=== PATIENT | female | born 1995 | race Two or more races ===

== ENCOUNTER 2024-08-16 20:07 | Emergency (ER) | payer MEDICAID, SELFPAY ==
[2024-08-16 20:26] VITALS: BP 140/93; PULSE 126; RESP 19; TEMP 39.3; O2SAT 99
--- NOTE | 2024-08-16 20:33 | XR_ITS ---
Examination: PA and lateral chest 2 views TECHNIQUE: Upright PA lateral chest 2 views Examination type: August 16, 2024 at 2043 hours INDICATIONS: Fever beginning 4 days ago FINDINGS: Normal heart size The lungs are clear The osseous structures are intact IMPRESSION: No active disease
--- NOTE | 2024-08-16 20:33 | EKG_ITS ---
[facility] Test Date: 2024-08-16 Pat Name: JORGE HEDRICK Department: Room: - Gender: Female Web Project Manager: : 1995 Requested By: Mark Anthony Ambrosio ([facility]) Order Number: [id number] Reading MD: Mark Anthony Ambrosio ([facility]) Measurements Intervals Notus Rate: 112 P: 71 PA: 131 QRS: 56 QRSD: 87 T: 39 QT: 309 QTc: 424 Interpretive Statements SINUS TACHYCARDIA NONSPECIFIC T-WAVE ABNORMALITY ABNORMAL RHYTHM ECG No previous ECG available for comparison /[id number]/[email or web address]/[id number].pdf
--- NOTE | 2024-08-16 20:34 | PD.EDRME ---
Rapid Medical Screening Exam RME Arrival date/time: 08/16/24 20:07 29-year-old female presents emergency department complaining of sore throat, body aches, fever, and cough for several days. Chief Complaint: Fever Time Seen by Provider: 08/16/24 20:16 Vital signs: Vital Signs Temperature 102.7 F H 08/16/24 20:26 Pulse Rate 126 H 08/16/24 20:26 Respiratory Rate 19 08/16/24 20:26 Blood Pressure 140/93 H 08/16/24 20:26 Pulse Oximetry (%) 99 08/16/24 20:26 Oxygen Delivery Method Room Air 08/16/24 20:26 Vital signs reviewed by provider: Yes
[2024-08-16 20:36] VITALS: BMI 24.7
[2024-08-16 20:39] VITALS: TEMP 39.3
[2024-08-16] MEDS: ACETAMINOPHEN 500 MG TABLET 1000 MG PO (20:39)
[2024-08-16 21:20] LABS: Lactate (Lactic Acid) 1.3 mMol/L (0.4-2.0)
[2024-08-16 21:26] LABS: Basophils % (Auto) 0 % (0-2.5); Eosinophils % (Auto) 0 % (0-10); Hematocrit 32.6 % (36.0-46.0); Hemoglobin 10.5 g/dL (12.0-16.0); Immature Granulocytes % (Auto) 1 % (0-0); Immature Granulocytes Auto 0.17 Thou/mm3 (0.00-0.00); Lymphocytes # (Auto) 2.3 Thou/mm3 (1.0-4.8); Lymphocytes % (Auto) 11 % (10-50); Mean Corpuscular HGB Conc 32.2 g/dl (31.0-37.0); Mean Corpuscular Hemoglobin 25.1 pg (25.0-35.0); Mean Corpuscular Volume 78 fL (80-100); Monocytes # (Auto) 1.7 Thou/mm3 (0.0-0.8); Monocytes % (Auto) 8 % (0-12); Neutrophils # (Auto) 16.5 Thou/mm3 (1.8-7.7); Neutrophils % (Auto) 80 % (37-80); Nucleated Red Blood Cell % 0 /100 WBC (0); Platelet Count 245 Thou/mm3 (140-440); RDW Standard Deviation 56.3 fL (36.4-46.3); Red Blood Count 4.18 Miln/mm3 (4.00-5.20)
[2024-08-16 21:32] LABS: White Blood Count 20.7 Thou/mm3 (3.6-11.0)
[2024-08-16 21:33] LABS: Strep A Rapid Positive (Negative)
--- NOTE | 2024-08-16 21:41 | PD.EDFEVER ---
ED Fever RME/HPI General Chief Complaint: Fever Stated Complaint: Fever and sore throat X 4 days Time Seen by Provider: 08/16/24 20:16 Source: patient Arrival date/time: 08/16/24 20:07 29-year-old female with no known medical history presents to the emergency room with a chief complaint of a sore throat, body aches, fever x 4 days Mode of arrival: ambulatory Limitations: no limitations RME / HPI RME / HPI Narrative: 08/16/24 20:07 29-year-old female presents emergency department complaining of sore throat, body aches, fever, and cough for several days. Related Data Previous Rx's ?Medication ?Instructions ?Recorded penicillin V potassium 500 mg 500 mg PO BID 10 days #20 tabs 08/16/24 tablet Allergies Allergy/AdvReac Type Severity Reaction Status Date / Time No Known Allergies Allergy Unverified 11/04/21 16:25 Review of Systems Review of Systems Systems Reviewed: All systems reviewed, normal except as documented Constitutional Constitutional: Reports system reviewed and no additional complaints, except as documented, Denies fatigue, Reports fever(s), Denies headache(s) and Reports weakness Eyes Eyes: Reports system reviewed and no additional complaints, except as documented, Denies blurry vision and Denies change in vision ENT Ears, Nose, Mouth, and Throat: Reports system reviewed and no additional complaints, except as documented, Denies otalgia, Denies headache(s), Denies nasal congestion, Reports sore throat, Denies throat swelling and Denies vertigo Cardiovascular Cardiovascular: Reports system reviewed and no additional complaints, except as documented, Denies chest pain, Denies dyspnea and Denies dyspnea on exertion Respiratory Respiratory: Reports system reviewed and no additional complaints, except as documented, Denies chest congestion, Denies cough, Denies dyspnea, Denies dyspnea on exertion and Denies wheezing Gastrointestinal Gastrointestinal: Reports system reviewed and no additional complaints, except as documented, Denies abdominal pain, Denies cramping, Denies nausea and Denies vomiting Genitourinary Genitourinary: Reports system reviewed and no additional complaints, except as documented Musculoskeletal Musculoskeletal: Reports system reviewed and no additional complaints, except as documented and Denies back pain Integumentary/Breasts Skin/Breast: Reports system reviewed and no additional complaints, except as documented and Denies wounds Neurologic Neurologic: Reports system reviewed and no additional complaints, except as documented, Denies confusion, Denies headache(s), Denies lack of coordination, Denies vertigo and Reports weakness Psychiatric Psychiatric: Reports system reviewed and no additional complaints, except as documented, Denies anxiety, Denies confusion, Denies depression, Denies paranoia, Denies suicidal ideation and Denies tactile hallucinations Endocrine Endocrine: Reports system reviewed and no additional complaints, except as documented and Denies fatigue Hematologic/Lymphatic Hematologic/Lymphatic: Reports system reviewed and no additional complaints, except as documented and Denies lymphadenopathy Allergic/Immunologic Allergic/Immunologic: Reports system reviewed and no additional complaints, except as documented, Denies throat swelling, Denies urticaria and Denies wheezing Physical Exam General Limitations: no limitations General appearance: alert and in no apparent distress Head Head exam: atraumatic Eye Eye exam: Present normal appearance, PERRL and EOMI ENT ENT exam: Present normal exam, normal oropharynx and mucous membranes moist Expanded ENT Exam Throat exam: Present tonsillar erythema and tonsillar exudate Neck Neck exam: Present normal inspection, full ROM and trachea midline Chest Chest inspection: Present normal inspection and symmetric chest wall rise Respiratory Respiratory exam: Present normal lung sounds bilaterally Cardiovascular Cardiovascular exam: Present regular rate, normal rhythm and normal heart sounds Abdominal Exam Abdominal exam: Present soft and normal bowel sounds Extremities Exam Extremities exam: Present normal inspection and full ROM Back Exam Back exam: Present normal inspection and full ROM Neurological Exam Neurological exam: Present alert, oriented X3 and CN II-XII intact Psychiatric Psychiatric exam: Present normal affect and normal mood Skin Skin exam: Present warm, dry, intact and normal color ED Exam General Limitations: Present no limitations General appearance: Present alert and in no apparent distress Head Head exam: Present atraumatic Eye Eye exam: Present normal appearance, PERRL and EOMI ENT ENT exam: Present normal exam, normal oropharynx and mucous membranes moist Expanded ENT Exam Throat exam: Present tonsillar erythema and tonsillar exudate Neck Neck exam: Present normal inspection, full ROM and trachea midline Chest Chest inspection: Present normal inspection and symmetric chest wall rise Respiratory Respiratory exam: Present normal lung sounds bilaterally Cardiovascular Cardiovascular exam: Present regular rate, normal rhythm and normal heart sounds Abdominal Exam Abdominal exam: Present soft and normal bowel sounds Extremities Exam Extremities exam: Present normal inspection and full ROM Back Exam Back exam: Present normal inspection and full ROM Neurological Exam Neurological exam: Present alert, oriented X3 and CN II-XII intact Psychiatric Psychiatric exam: Present normal affect and normal mood Skin Skin exam: Present warm, dry, intact and normal color Course Quality Measures none Orders Category Date Time Status Bedside Influenza A&B Antigen Test NOW Care 08/16/24 20:34 Completed EKG (ED ONLY) *Do not use* NOW Care 08/16/24 20:33 Completed EKG (ED Only) Stat Exams 08/16/24 20:33 Draft XR chest 2V Stat Exams 08/16/24 20:33 Completed B-Type Natriuretic Peptide Stat Lab 08/16/24 20:50 Completed Blood Culture (Lab) Stat Lab 08/16/24 20:55 Received CBC Stat Lab 08/16/24 20:50 Completed Comprehensive Metabolic Panel Stat Lab 08/16/24 20:50 Completed HCG,Qualitative Serum Stat Lab 08/16/24 20:50 Completed Lactate (Lactic Acid) Stat Lab 08/16/24 20:50 Completed Lipase Stat Lab 08/16/24 20:50 Completed Magnesium Stat Lab 08/16/24 20:50 Completed Partial Thromboplastin Time Stat Lab 08/16/24 20:50 Completed Procalcitonin Stat Lab 08/16/24 20:50 Completed Prothrombin Time with INR Stat Lab 08/16/24 20:50 Completed Strep A Rapid Stat Lab 08/16/24 20:58 Completed Troponin I Stat Lab 08/16/24 20:50 Completed Urinalysis Stat Lab 08/16/24 20:33 Ordered Urine Culture Stat Lab 08/16/24 20:33 Ordered Acetaminophen Tab [Tylenol ES Tab] Med 08/16/24 20:35 Discontinued 1,000 mg PO X1 ONE PEN G MICHAEL (Bicillin LA) [Bicillin La Inj] Med 08/16/24 21:40 Discontinued 1.2 mmu IM X1 ONE Vital Signs Vital signs: Vital Signs Temperature 102.7 F H 08/16/24 20:26 Pulse Rate 126 H 08/16/24 20:26 Respiratory Rate 19 08/16/24 20:26 Blood Pressure 140/93 H 08/16/24 20:26 Pulse Oximetry (%) 99 08/16/24 20:26 Oxygen Delivery Method Room Air 08/16/24 20:26 O2 saturation 99% within normal limits Fever MDM Narrative MDM Narrative:: 29-year-old female with no known medical history presents to the emergency room with a chief complaint of a sore throat, body aches, fever x 4 days Patient is hemodynamically stable and in no apparent distress. Patient is febrile but was given antipyretics Physical examination shows an erythemic posterior pharynx with exudates to the right tonsillar pillar and a cobblestone appearance Strep test was positive for Streptococcus pharyngitis Patient discharged and educated to follow-up with primary care provider and return to the emergency room for any evidence of worsening signs or send Patient data External records reviewed:: [facility] previous records Clinical information provided by:: patient Social determinants that could affect healthcare access:: none Patient has the following chronic illnesses:: No chronic illness How is presenting disease/condition affected by chronic disease/condition?: no chronic disease Evaluation data The following diagnostics were reviewed and interpreted by me:: lab results and radiology exam(s) Lab and/or radiology exams considered but not ordered:: Labs and radiology exams considered and ordered Interpretation Summary: N/A Medications / Prescriptions Medications or Prescriptions considered but not ordered:: Medication given Medication administrations:: Medication Administration History Discontinued Medications Acetaminophen (Acetaminophen 500 Mg Tablet) 1,000 mg PO X1 ONE Stop: 08/16/24 20:36 Last Admin: 08/16/24 20:39 Dose: 1,000 mg Documented By: OA Penicillin G Benzathine (Pen G Michael (Bicillin La) 1.2 Mmu/2 Ml Syrg) 1.2 mmu IM X1 ONE Stop: 08/16/24 21:41 Rx given Consultations Consultation(s) initiated? (list below): No Diagnosis Fever Differential Diagnosis: community acquired pneumonia, viral infection, influenza and other (Pharyngitis) Most likely diagnosis given after review of the tests above:: Acute pharyngitis Admission Indicated Admission indicated?: not indicated Admission Request Was there a request for admission?: No Disposition Plan Disposition Plan: Discharge Discharge Attestation Discharge Attestation: The patient and all family members were given an opportunity to ask questions and understood the discharge instructions. Discharge instructions specifically effects, indications for sooner follow up or return to the emergency department, and the expected course of current diagnosis. Patient condition: Stable Discharge Plan Plan Patient Disposition: HOME (Self Care) Disposition Comment: Stable Prescriptions/Referrals Prescriptions/Med Rec: New penicillin V potassium 500 mg tablet 500 mg PO BID 10 Days Qty: 20 0RF Referrals: Magen Squires MD [Primary Care Provider] - In 1 week Problem List Clinical Impression: Acute streptococcal pharyngitis Patient/Caregiver Discharge Instructions Education Materials: ED Pharyngitis, Strep (Confirmed) Additional Instructions: Please follow-up with your primary care provider in the next 24 to 48 hours. Antibiotics are sent to your pharmacy please pick it up and take them as indicated. You tested positive for strep throat. Please continue to take Tylenol and ibuprofen for fever management Please increase your oral and fluid intake For any evidence of worsening signs or symptoms please return to the emergency room immediately Print Language: Malawian Stand Alone Forms: Renay Award Info., Patient Portal Info Letter PA/DUB ROOM ENGINEER Supervising Physician PA/ANDREINA Supervising Physician: Dr. Galicia
[2024-08-16 21:44] LABS: Partial Thromboplastin Time 31.7 Seconds (22.0-36.0); Prothrombin Time 11.1 Seconds (9.0-12.2)
[2024-08-16 21:47] LABS: B-Type Natriuretic Peptide < 20 pg/mL (0-100)
[2024-08-16 21:57] LABS: HCG,Qualitative Serum Negative
[2024-08-16 22:02] LABS: Alanine Aminotransferase 61 U/L (10-49); Albumin, Serum 4.7 gm/dL (3.5-5.0); Alkaline Phosphatase 121 U/L (46-116); Anion Gap 9 (7-16); Aspartate Amino Transferase 96 U/L (0-34); BUN/Creatinine Ratio 14 Ratio (12-20); Bilirubin,Total 0.3 mg/dL (0.3-1.2); Blood Urea Nitrogen 10 mg/dL (9-23); Calcium 9.3 mg/dL (8.3-10.6); Calcium (Corrected) 9.3 mg/dL (8.5-10.1); Carbon Dioxide 25.6 mMol/L (20.0-31.0); Chloride 99 mMol/L (98-107); Creatinine (Component) 0.7 mg/dL (0.6-1.3); Estimated Creatinine Clearance 104.8 mL/min (>60); Glucose 105 mg/dL (74-106); Lipase 41 U/L (12-53); Magnesium 1.6 mg/dL (1.6-2.6); Osmolality,Calculated 267 (275-295); Potassium 4.2 mMol/L (3.4-5.1); Sodium 134 mMol/L (136-145); Troponin I < 0.020 ng/mL (0.0-0.045); eGFR > 60 See Note
[2024-08-16 22:09] LABS: Albumin/Globulin Ratio 1.4 (1.2-2.2); Globulin 3.3 gm/dL (2.3-3.5); Procalcitonin 0.14 ng/ml (0.0-0.49)
--- NOTE | 2024-08-16 22:24 | PC.NURSE ---
nax 1 at this time
--- NOTE | 2024-08-16 22:30 | PC.NURSE ---
CALLED PT IN ER LOBBY AND OUTSIDE OF ER FOR MEDS AND NO ANSWER
--- NOTE | 2024-08-16 23:00 | PC.NURSE ---
CALLED PT IN ER LOBBY AND OUTSIDE OF ER FOR MEDS AND NO ANSWER
--- NOTE | 2024-08-16 23:25 | PC.NURSE ---
CALLED PT IN ER LOBBY AND OUTSIDE OF ER FOR MEDS AND NO ANSWER
== END 2024-08-16 23:26 | disposition home or self-care (01) ==
PROVIDERS: Emergency Provider Emergency Medicine; PCP Family Medicine
DX: J02.0 Streptococcal pharyngitis (principal)
CPT/HCPCS: 36415; 71046; 80053; 81001; 83605; 83690; 83735; 83880; 84145; 84484; 84703; 85025; 85610; 85730; 87040; 87086; 87400; 87651; 93005; 99283; A9270

== ENCOUNTER 2024-08-19 22:08 | Emergency (ER) | payer MEDICAID, SELFPAY ==
--- NOTE | 2024-08-19 23:08 | PC.NURSE ---
NO ANSWER AT ER LOBBY OR OUTSIDE ER TO BE SEEN BY PROVIDER.
--- NOTE | 2024-08-19 23:21 | PC.NURSE ---
NO ANSWER AT ER LOBBY OR OUTSIDE ER.
== END 2024-08-20 00:54 | disposition left against medical advice (07) ==
LOC: SERX 08-20 00:46
PROVIDERS: Emergency Provider Emergency Medicine
DX: Z53.21 Procedure and treatment not carried out due to patient leaving prior to being seen by health care provider (principal)